=== PATIENT | male | born 1960 | race Caucasian/White ===

== ENCOUNTER 2022-09-12 02:37 | Emergency (ER) | payer BC, SELFPAY ==
[2022-09-12 02:50] VITALS: BP 143/82; PULSE 74; RESP 24; TEMP 36.7; O2SAT 95; BMI 27.7
--- NOTE | 2022-09-12 03:06 | ED_ITS ---
HPI - Eye Problem General Chief complaint: Eye Problems Stated complaint: sharp pain in left eye. Time Seen by Provider: 09/12/22 02:53 History of Present Illness HPI Narrative: Pt is a 62 year old gentleman who presents with severe left sided eye pain. Pt was sleeping and awoke with severe pain in his left eye. Pt has not been doing any high risk activity and believes that he scratched his left eye while sleeping. Pts visual acuity is normal in the left eye. No right eye symptoms. Pt symptoms began 3 hours ago. Painis severe and localized to the left eye. Pain seems to worsen when he moves the left eye but he has no discharge. No recent trauma or injury. Related Data Patient tetanus UTD: Yes Review of Systems Status of ROS: Reports: 10 or more systems reviewed and unremarkable except as noted in History and below Exam Narrative: Exam Narrative: EXAM GENERAL: Patient appears acutely uncomfortable. EYES: Mild injection of the sclera of the left eye. Normal pupillary response. Normal visual acuity. THYROID: no thyroid nodules or thyromegaly. LYMPH: No supraclavicular or cervical lymphadenopathy. SKIN: Visible skin seen during exam normal or with benign process only. EXT: No dependent lower extremity pedal edema. HEART: Regular rate and rhythm with no murmurs, rubs, or gallops. LUNGS: Clear to auscultation bilaterally with no crackles or wheezes. ABD: Soft, non tender, non distended. PSYCH: Good eye contact, speech is not pressured. Const: Vital Signs, click to edit/add: Vital Signs - 24 hr 09/12/22 02:50 Temperature 98.1 F Pulse Rate [Right Pulse Oximeter] 74 Respiratory Rate 24 Blood Pressure [Ri ght Upper Arm] 143/82 H Pulse Oximetry 95 Oxygen Delivery Me thod Room Air Course Course Hospital Course: Pt seen and examined. Tetracaine placed into left eye with immediate relief of symptoms. Careful eye exam and irrigation performed. No obvious foreign bodies. Normal inspection except for scleral irritation. Vital Signs Vital signs: Initial Vital Signs Temperature 98.1 F 09/12/22 02:50 Temperature Source Temporal Artery Scan 09/12/22 02:50 Pulse Rate 74 09/12/22 02:50 Pulse Rhythm 09/12/22 02:50 Respiratory Rate 24 09/12/22 02:50 Blood Pressure 143/82 H 09/12/22 02:50 Blood Pressure Mean 102 09/12/22 02:50 Blood Pressure Position Sitting 09/12/22 02:50 Pulse Oximetry 95 09/12/22 02:50 Oxygen Delivery Method 09/12/22 02:50 Vital Signs Temperature 98.1 F 09/12/22 02:50 Pulse Rate 74 09/12/22 02:50 Respiratory Rate 24 09/12/22 02:50 Blood Pressure 143/82 H 09/12/22 02:50 Pulse Oximetry 95 09/12/22 02:50 Oxygen Delivery Method 09/12/22 02:50 Temperature 98.1 F 09/12/22 02:50 Pulse Rate 74 09/12/22 02:50 Respiratory Rate 24 09/12/22 02:50 Blood Pressure 143/82 H 09/12/22 02:50 Pulse Oximetry 95 09/12/22 02:50 Oxygen Delivery Method 09/12/22 02:50 MDM - Eye Problem MDM Narrative Medical decision making narrative: Pt presents after likely scratching himself in the left eye while sleeping. Relief with tetracaine. Normal inspection except injection. Normal visual acuity. Pt will follow up with [facility] in the morning if symptoms return. Differential Diagnosis Differential diagnosis: Likely corneal abrasion, conjunctivitis, acute iritis, hyphema, periorbital cellulitis, subconjunctival hemorrhage, glaucoma, corneal ulcer and ruptured globe Discharge Plan Discharge Clinical Impression: Corneal abrasion Patient Disposition: Home, Self-Care Condition: Stable Instructions: Corneal Abrasion (ED) Additional Instructions: Follow up with [facility] in the morning if symptoms persist Activity Level: No Restrictions Discharge Diet: Regular Follow Up/Referrals: Kevin Blandon MD [Primary Care Provider] - Stand Alone Forms: Socialeyes App Info Instructions
[2022-09-12] MEDS: TETRACAINE 0.5% OPHTH 2 DROP EYE-LEFT (03:44)
== END 2022-09-12 03:49 | disposition home or self-care (01) ==
PROVIDERS: Emergency Provider Internal Medicine; PCP Family Medicine
DX: S05.02XA Injury of conjunctiva and corneal abrasion without foreign body, left eye, initial encounter (principal)
CPT/HCPCS: 99283

== ENCOUNTER 2023-09-21 08:00 | Outpatient (RCR) | payer MEDICARE, BC, SELFPAY | END 2023-09-21 08:57 | disposition home or self-care (01) | PROVIDERS: PCP Family Medicine; Visit Provider Family Medicine | DX: M25.551 Pain in right hip (principal); M54.12 Radiculopathy, cervical region; Z74.09 Other reduced mobility; R53.1 Weakness; Z51.89 Encounter for other specified aftercare | CPT/HCPCS: 97012; 97035; 97110; 97140; 97161; 97162 ==

== ENCOUNTER 2024-03-19 06:58 | Outpatient (CLI) | payer MEDICARE, BC, SELFPAY ==
--- OUTSIDE RECORDS SUMMARY | 2024-03-19 07:01 | XMS_ITS | Clinical Summary ---
Author Organization [facility] Address [place], [place] [address] Care Team Providers Care Instrument Worker Name Role Phone Kevin Blandon MD Primary Care Provider Allergies No known active allergies Medications Medication Sig Dispensed Refills Start Date End Date Status atorvastatin (LIPITOR) 20 mg tabletIndications:Hype rlipidemia, unspecified hyperlipidemia type Take 1 Tablet (20 mg) by mouth at bedtime. 90 Tablet 4 07/19/2023 Active lisinopril-hydrochloro thiazide, 20-25 mg, (PRINZIDE, ZESTORETIC) 20-25 mg per tabletIndications:Hype rtension, unspecified type Take 1 Tablet by mouth once daily. 90 Tablet 4 07/19/2023 Active sildenafil citrate (VIAGRA) 100 mg tabletIndications:Erec tile dysfunction, unspecified erectile dysfunction type Take 1 tablet by mouth once daily if needed for erectile dysfunction. Take 30 minutes to 4 hours before sexual activity. Max 100 mg every 24 hours. 20 Tablet 7 01/01/2024 Active Active Problems Problem Noted Date Diagnosed Date Cervical radiculopathy 07/19/2023 Erectile dysfunction 07/19/2023 Heavy alcohol use 05/22/2018 Mixed hyperlipidemia 11/06/2014 Impaired fasting glucose Benign essential HTN Overview: Updated by system to replace inactive record Resolved Problems Problem Noted Date Diagnosed Date Resolved Date Vitamin D insufficiency 11/06/2014 09/0 01/2018 Encounters Date Type Department Care Team Description 12/31/2023 Refill [facility] [address] [place] [address] Kevin Blandon MD Refill Request (Sildenafil Citrate) from Last 3 Months Immunizations Name Administration Dates Next Due COVID-19 Vaccine Spikevax (M oderna 50mcg/0.5mL) 12YO+ [id number] Formula PF 07/19/2023 COVID-19 vaccine (Pfizer-Bio NTech 30mcg/0.3mL) 12YO+ BIVALENT PF, MDV 06/29/2022 COVID-19 vaccine (Pfizer-Bio NTech 30mcg/0.3mL) 12YO+ RAJENDRA-SUCROSE PF, MDV 01/06/2022 COVID-19 vaccine (Pfizer-Bio NTech 30mcg/0.3mL) PF, MDV 01/06/2022,09/01/2021,01/25/2021,2020 Influenza, IIV4 06/29/2022,06/28/2021,06/22/2020 Influenza, Inactivated AIIV4 (Age 65+ Years) Preserv Free 07/19/2023 Pneumococcal Conj 20-valent (Prevnar 20) 07/19/2023 Td (Age >=7 Years) 05/22/2018,07/06/1997 Td, Preservative Free (age > = 7 Years) 05/22/2018 Tdap 11/05/2008 Zoster (Shingrix-RZV, recombinant) 09/01/2021, Family History Medical History Relation Name Comments Diabetes Father at 80. Stroke Father Cancer-colon Neg. 1 Cancer-prostate Neg. 2 Heart Disease Neg. 3 Relation Name Status Comments Father Mother Alive Neg. 1 Neg. 2 Neg. 3 Social History Tobacco Use Types Packs/Day Years Used Date Smoking Tobacco: Former Cigarettes Q uit: 09/17/1989 Smokeless Tobacco: Never Tobacco Cessation:Counseling Given: No Alcohol Use Standard Drinks/Week Comments Yes 24 (1 standard drink = 0.6 oz pu re alcohol) 6 beers per day PHQ-2 Answer Date Recorded PHQ-2 TOTAL SCORE 0 07/19/2023 Social Connections Answer Date Recorded Frequency of Communication with Friends and Fami ly Not on file 09/17/2021 Financial Resource Strain Answer Date R ecorded Difficulty of Paying Living Expenses Not on file 09/17/2021 Difficulty of Paying Living Expenses Not on file 09/17/2021 Sex and Gender Information Value Date Recorded Sex Assigned at Not on file Gender Identity Not on file Sexual Orientation Not on file Obstetrics History Last Filed Vital Signs Vital Sign Reading Time Taken Comments Blood Pressure 128/83 07/19/2023 7:56 AM CDT Pulse 77 07/19/2023 7:56 AM CDT Temperature 37.1 ??C (98.8 ??F) 06/22/2020 8:56 AM CD T Respiratory Rate 18 07/22/2018 7:44 AM CENTRAL PROCESSING TECHNICIAN Oxygen Saturation 96% 07/19/2023 7:56 AM CDT Inhaled Oxygen Concentration - - Weight 94.3 kg (207 lb 12.8 oz) 07/19/2023 7:56 AM CDT Height 184.9 cm (6' 0.8) 07/19/2023 7:56 AM CDT Body Mass Index 27.57 07/19/2023 7:56 AM CDT Plan of Treatment Health Maintenance Due Date Last Done Comments AAA screening age 65-74 2023 COVID-19 vaccine series ( season) 2023 07/19/2023, 06/29/2022, 01/06/2022, Additional history exists Influenza for age 65+ 05/18/2024 07/19/2023 , 06/29/2022, 06/28/2021, Additional history exists BMI (ht and wt on same day) for age 18+ 07/19/2024 07/19/2023, 06/29/2022, 06/28/2021, Additional history exists Medicare Wellness for age 65+ 07/19/2024 07/19/2023 Depression screening for age 12+ 07/20/2024 07/20/2023, 07/19/2023, 06/29/2022, Additional history exists Fecal testing non-DNA (FIT,FOBT,iFOBT) for age 45-75 07/24/2024 07/24/2023, 07/01/2022, 07/01/2021, Additional history exists Tetanus booster 05/22/2028 05/22/2018, 09/0 01/2018, 11/05/2008, Additional history exists Lipids for age 45-75 07/19/2028 07/19/2023, 06/29/2022, 06/28/2021, Additional history exists Tdap Completed 11/05/2008 Hepatitis C screening for ag e 18-79 Completed 11/06/2014 Zoster (shingles) series for age 50+ Completed 09/01/2021, 06/28/2021 HIV for age 15-65 Completed 07/19/2023 Pneumococcal series for age 65+ Completed 3 Procedures Procedure Name Priority Date/Time Associated Diagnosis Comments OCCULT BLOOD IFOBT STOOL Routine 07/24/2023 12:58 PM CENTRAL PROCESSING TECHNICIAN Screening for colon cancer ANTI HIV 1/2 Routine 07/19/2023 9:11 AM CDT Screening for HIV (human immunodeficiency virus) LIPID PANEL W REFLEX MEASURED LDL Routine 07/19/2023 9:11 AM CDT Hyperlipidemia, unspecified hyperlipidemia type ANTI HCV Routine 11/06/2014 8:42 AM CENTRAL PROCESSING TECHNICIAN Need for hepatitis C screening test from Last 3 Months or Most Recently Relevant to Health Maintenance Results * OCCULT BLOOD IFOBT STOOL (07/24/2023 12:58 PM CENTRAL PROCESSING TECHNICIAN) STOOL BLOOD ,IFOBT Negative Negative 07/27/2023 1:57 PM CENTRAL PROCESSING TECHNICIAN [facility] Stool STOOL SPECIMEN / Unknown Non-Blood / Unknown 07/24/2023 12:58 PM CENTRAL PROCESSING TECHNICIAN 07/27/2023 12:58 PM CENTRAL PROCESSING TECHNICIAN Kevin Blandon MD LABORATORY [facility] [address] [place] [address], * LIPID PANEL W REFLEX MEASURED LDL (07/19/2023 9:11 AM CDT) CHOLESTEROL,TOTAL 194 100 - 199 mg/dL 07/19/2023 4:52 PM CDT [facility] Comment: Cholesterol, Total Reference Ranges Desirable <200 mg/dL Borderline 200-239 mg/dL High >=240 mg/dL TRIGLYCERIDES 102 <150 mg/dL 07/19/2023 4:52 PM CDT [facility] HDL CHOLESTEROL 59 >40 mg/dL 4:52 PM CDT [facility] NON-HDL CHOLESTEROL 135 <145 mg/dl 07/19/2023 4:52 PM CDT [facility] CHOL/HDL RATIO 3.29 <4.50 07/19/2023 4:52 PM CDT [facility] LDL CHOLESTEROL 115 <=130 mg/dL 07/19/2023 4:52 PM CDT [facility] VLDL CHOLESTEROL 20 <=30 mg/dL 07/19/2023 4:52 PM CDT [facility] PROVIDER ORDERED STATUS RANDOM 07/19/2023 4:52 PM CDT [facility] Blood BLOOD SPECIMEN / Unknown Venipuncture / Unknown 07/19/2023 9:11 AM CDT 07/19/2023 9:12 AM CDT Kevin Blandon MD CHEMISTRY Performing Organization Address [facility]/ZIP Co de Phone Number [facility] [address] [place] [address], * ANTI HIV 1/2 (07/19/2023 9:11 AM CDT) HIV-1/HIV-2 SCREEN Non-Reacti ve Non-Reacti ve 07/19/2023 5:10 PM CDT [facility] Comment:HIV-1 p24 and HIV-1/ HIV-2 Ab Not Detected. Blood BLOOD SPECIMEN / Unknown Venipuncture / Unknown 07/19/2023 9:11 AM CDT 07/19/2023 9:12 AM CDT Kevin Blandon MD SEND OUTS Performing Organization Address City/[facility]/ZIP Co de Phone Number [facility] [address] [place] [address], * ANTI HCV [37190.2] (11/06/2014 8:42 AM CENTRAL PROCESSING TECHNICIAN) HEPATITIS C ANTIBODY Non-Reacti ve Non-Reacti ve 11/06/2014 1:34 PM CENTRAL PROCESSING TECHNICIAN [facility] Blood specimen (specimen) BLOOD SPECIMEN / Unknown Venipuncture / Unknown 11/06/2014 8:42 AM CENTRAL PROCESSING TECHNICIAN 11/06/2014 8:42 AM CENTRAL PROCESSING TECHNICIAN Narrative [facility] - 11/06/2014 1:34 PM CENTRAL PROCESSING TECHNICIAN Antibodies to HCV not detected; does not exclude the possibility of exposure to HCV. Kevin Blandon MD SEND OUTS [facility] [address] [place] [address], from Last 3 Months or Most Recently Relevant to Health Maintenance Care Teams Instrument Worker Relationship Specialty Start Date End Date Kevin Blandon MD [address] [place] [address] PCP - General 02/14/06
--- NOTE | 2024-03-19 07:15 | MR_ITS ---
[address] [address] Phone:?[phone] Fax:?[phone] Referring Physician Information: Sekou De La Paz M.D. [address] [facility] [address] Phone:?[phone] Fax:?[phone] Patient:?Elias Hatfield D.O.B:?1960 Sex:?Male Phone:?[phone] [facility] MRN:?[id number] Exam Date:?03/19/2024 EXAM: MRI OF THE LEFT KNEE CLINICAL INFORMATION: The patient is a 63-year-old with left knee pain. Evaluate for medial meniscal tear. PRIOR SURGERY: None reported. COMPARISON STUDIES: There are no prior studies available for comparison. TECHNICAL INFORMATION: Imaging was performed on a high-field, 1.5 Patrica MR scanner. Axial proton-density and fat-suppressed T2 imaging of the left knee was performed in addition to coronal proton-density and STIR imaging. Sagittal proton-density and fat-suppressed proton-density imaging was also performed. FINDINGS: Articular/Extraarticular collections: Effusion: Mild to moderate. Popliteal cyst: Moderate, seen on sagittal series 6 image 9. Loose bodies: A low signal loose body is suspected within the popliteal cyst on sagittal series 6 image 9, measuring approximately 3 mm in greatest dimension. No well-defined intra-articular loose bodies are noted. Subcutaneous and extraarticular soft tissues: Nonspecific subcutaneous soft tissue edema and/or hemorrhage can be seen along the anterior and anteromedial aspects of the left knee. Osseous structures: There is a broad-based area of increased fat-suppressed signal intensity involving the central and medial aspects of the medial tibial plateau with cortical irregularity and suspected cortical fracture along the medial articular surfaces, noted to best advantage on coronal series 8 image 21 and on sagittal series 6 image 8. The area of subcortical fracture is thought to measure approximately 10 mm in greatest dimension. The findings are in keeping with a traumatic or stress injury of the medial tibial plateau. Additional marrow edema along the articular surfaces of the medial femoral condyle can be seen, in keeping with the meniscal tearing and chondral loss described below. Areas of marrow edema and cortical irregularity along the central and medial articular surfaces of the patellofemoral articulation can be seen, in keeping with chondromalacia and chondral loss described below. No other bony abnormalities about the knee are seen. Ligamentous structures: ACL: Intact and normal in appearance. PCL: Intact and normal in appearance. MCL: Intact and normal in appearance. LCL: Intact and normal in appearance. Posterolateral corner: Intact and normal in appearance. Posteromedial corner: No posteromedial corner soft tissue injury. Semimembranosus and pes anserine tendons demonstrate no tendinopathy or associated bursitis. Extensor mechanism/Patellar retinacular structures: Patellar tendon: Intact, without tendinopathy. Quadriceps tendon: Intact, without tendinopathy. Retinacula: The medial and lateral retinacula are intact. The medial patellofemoral ligament is intact. Medial compartment: Medial meniscus: The medial meniscus is abnormal in appearance. There is broad- based, complex tearing of the posterior horn, predominantly involving the apical free edge and superior surfaces on sagittal series 6 image 10. Additional horizontal tearing of the middle one third of the medial meniscus can be seen on coronal series 8 image 18. The area of medial meniscal tearing measures 30 mm in anteroposterior dimension and 27 mm in mediolateral dimension. Degeneration and fraying of the anterior horn can be seen without discrete areas of well-defined tearing. No definite parameniscal cyst formation is identified. Medial femoral condyle: Full-thickness and near full-thickness chondral loss can be seen along the weightbearing surfaces of the medial femoral condyle with mild underlying bony change. Medial tibial plateau: Full-thickness and near full-thickness chondral loss can be seen along the medial articular surfaces of the medial tibial plateau. Lateral compartment: Lateral meniscus: The lateral meniscus is abnormal in appearance. There is tearing of the anterior horn seen on sagittal series 6 image 23 with degeneration and fraying of the middle and posterior portions. Additional poorly defined tearing of the far posterior aspect of the lateral meniscus can be seen at the meniscotibial attachment on sagittal series 6 image 20. No evidence for parameniscal cyst formation is identified. Lateral femoral condyle: No chondromalacia, chondral defect, or osteochondral abnormality. Lateral tibial plateau: Grade II chondromalacia can be seen along the weightbearing surfaces of the lateral tibial plateau. Patellofemoral compartment: Patella: Full-thickness and near full-thickness chondral loss can be seen involving the medial patellar facet on axial series 3 image 11. Additional grade II chondromalacia of the patellar apex and lateral facet can be seen. Trochlea: Full-thickness and near full-thickness chondral loss can be seen along the central and medial articular surfaces of the femoral trochlea. Neurovascular: No definite neurovascular abnormalities are seen. CONCLUSION: 1. Tearing and degeneration of the medial and lateral menisci as described above. 2. 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 3. Traumatic versus stress injury involving the medial aspect of the medial tibial plateau. 4. The cruciate and collateral ligaments appear intact. 5. Mild to moderate knee joint effusion and moderate popliteal cyst. AEC Electronically signed on 03/19/2024 11:07:00 AM by Kyler Mccarty M.D.
== END 2024-03-19 06:59 | disposition home or self-care (01) ==
LOC: MRI 07:00
PROVIDERS: PCP Family Medicine; Visit Provider Orthopaedic Surgery
DX: M25.562 Pain in left knee (principal); S83.282A Other tear of lateral meniscus, current injury, left knee, initial encounter; M94.262 Chondromalacia, left knee; M25.462 Effusion, left knee
CPT/HCPCS: 73721